=== PATIENT | male | born 1995 | race African-American/Black ===

== ENCOUNTER 2022-08-22 19:50 | Emergency (ER) | payer OTHER ==
[2022-08-22 20:44] VITALS: BP 132/85; PULSE 101; RESP 16; TEMP 98.7; BMI 25.8
== END 2022-08-22 20:20 | disposition left against medical advice (07) ==
LOC: FER 19:50
DX: R05.1 Acute cough (principal)
CPT/HCPCS: 99281-25

== ENCOUNTER 2022-08-22 20:40 | Emergency (ER) | payer OTHER ==
[2022-08-22 20:51] VITALS: BP 128/84; RESP 18; TEMP 97.7; BMI 24.5
[2022-08-22] MEDS ORDERED: ALBUTEROL SO4 HFA INHALER IH ONE ×2 (22:44→22:45)
[2022-08-22 22:59] VITALS: PULSE 99
== END 2022-08-22 23:10 | disposition home or self-care (01) ==
LOC: JERFT 20:40
DX: R11.10 Vomiting, unspecified (principal); R05.1 Acute cough
CPT/HCPCS: 0241U-QW; 99283-25